=== PATIENT | male | born 1965 | race Caucasian/White ===

== ENCOUNTER 2016-04-30 11:14 | Emergency (ER) | payer MEDICARE, OTHER ==
[~2016-04-30] VITALS: Ht 180.3 cm; Wt 78.0 kg
[~2016-04-30 11:14] MED LIST: CHLO.12%30 SSP; CLIN1CAP5 PO; NAPR-576 PO
[2016-04-30 11:17] VITALS: BP 150/70; PULSE 87; RESP 16; TEMP 98.2; O2SAT 98
[2016-04-30] MEDS ORDERED: CEPH-460 PO (11:57)
[2016-04-30] MEDS ORDERED: BACT800T5 PO (11:57)
[2016-04-30] MEDS ORDERED: IBUP800T23 PO (11:57)
--- NOTE | 2016-04-30 11:58 | PD ---
HPI Chief Complaint: Skin Problem Time Seen by Provider: 11:42 Travel History International Travel<30 days: No Contact w/Intl Traveler<30days: No Traveled to known affect area: No History of Present Illness HPI 50-year-old male presents to the emergency Department with complaint of a lump to his back that has been there for the past few months. Over the past few days he has noticed that it is become more tender and red. He denies fever, chills, nausea, vomiting. He has not taken any medications or tried any treatments to alleviate his symptoms. Reports being up-to-date on his tetanus vaccination. No known allergies. No other modifying factors or associated signs and symptoms. PFSH Social History Alcohol Use: Yes Tobacco Use: Yes (1 PPD) Substance Use: Yes Allergies-Medications (Allergen,Severity, Reaction): Coded Allergies: No Known Allergies (Unverified , 04/30/16) Reported Meds & Prescriptions Reported Meds & Active Scripts Active Ibuprofen 800 Mg Tab 800 Mg PO Q6HR PRN Bactrim DS (Sulfamethoxazole-Trimethoprim) 800-160 Mg Tab 1 Tab PO BID 10 Days Keflex (Cephalexin) 500 Mg Cap 500 Mg PO Q6H 10 Days Review of Systems Except as stated in HPI: all other systems reviewed are Neg Physical Exam Narrative GENERAL: Well-nourished, well-developed male patient, in no acute distress; afebrile, nontoxic-appearing SKIN: There is an indurated area to the left upper back which measures about 1.5 cm in diameter. It is fluctuant but there is no pointing or drainage. There is a zone of inflammation around it but no lymphangitis. HEAD: Atraumatic. Normocephalic. EYES: Pupils equal and round. No scleral icterus. No injection or drainage. ENT: Mucosa pink and moist. Airway patent. NECK: Trachea midline. CARDIOVASCULAR: Regular rate. RESPIRATORY: No accessory muscle use. GASTROINTESTINAL: Flat. MUSCULOSKELETAL: No obvious deformities. No clubbing. No cyanosis. No edema. NEUROLOGICAL: Awake and alert. Oriented 3. No obvious cranial nerve deficits. Motor grossly within normal limits. Normal speech. PSYCHIATRIC: Appropriate mood and affect; insight and judgment normal. Data Data Last Documented VS Vital Signs Date Time Temp Pulse Resp B/P Pulse Ox O2 Delivery O2 Flow Rate FiO2 04/30/16 11:17 98.2 87 16 150/70 98 Orders Lidocaine 1% Inj (50 Ml) (Xylocaine 1% I (04/30/16 11:45) Wound Culture And Gram Stain (04/30/16 11:58) [facility] Medical Decision Making Medical Screen Exam Complete: Yes Emergency Medical Condition: Yes Medical Record Reviewed: Yes Differential Diagnosis Abscess, infected cyst, cellulitis Narrative Course 50-year-old male with a abscess to his left upper back that is fluctuant. Up-to -date on his tetanus vaccination. There was an area to the abscess looks like it has been previously been incised and drained but the patient says that he thinks he may have been shot with a pellet in the back, as the area has been there for a couple months, and has just recently become tender and erythematous. Patient is afebrile and nontoxic-appearing. He denies fever, chills, nausea, vomiting. See STEPAN Bradley procedure note for incision and drainage of the abscess. Wound culture pending. Keflex, Bactrim, ibuprofen prescribed for home. Patient verbalizes understanding and agreement with treatment plan. Patient is medically cleared and stable for discharge. Discussed reasons to return to the emergency department. Instructed patient to follow up with primary care provider. Patient agrees with treatment plan. The patients vital signs are stable and the patient is stable for outpatient follow- up and treatment. Patient discharged home, stable and in no acute distress. Diagnosis Primary Impression: Back abscess Referrals: Primary Care Physician Patient Instructions: Abscess (ED), Abscess Follow-up (ED), Abscess Incision and Drainage (ED), General Instructions Departure Forms: Tests/Procedures, Work Release Enter return to work date: May 01, 2016 Additional Instructions: Complete full course of antibiotics Warm compresses to the affected area Keep area clean and dry Ibuprofen or Tylenol as directed and as needed for pain and inflammation Follow-up with primary care provider Return to emergency department immediately with worsening of symptoms Med/Other Pt SpecificInfo: Prescription(s) given Scripts Ibuprofen 800 Mg [id number] Mg PO Q6HR PRN (PAIN) #30 TAB Ref 0 Prov:Kaylin No 04/30/16 Sulfamethoxazole-Trimethoprim (Bactrim DS)800-160 Mg Tab1 Tab PO BID 10 Days Ref 0 Prov:Kaylin No 04/30/16 Cephalexin (Keflex)500 Mg [id number] Mg PO Q6H 10 Days Ref 0 Prov:Kaylin No 04/30/16 Disposition: 01 DISCHARGE HOME Condition: Stable Kaylin No Apr 30, 2016 11:58
[2016-04-30] MEDS: LIDOCAINE HCL 1% 50 ML VIAL INFIL ONE (12:05)
--- NOTE | 2016-04-30 12:07 | PD ---
Physical Exam Date Seen by Provider: Apr 30, 2016 Time Seen by Provider: 12:05 Narrative I was asked by STEPAN Ewing, to incise and drain abscess to patient's left upper back. Please see her documentation for full history and physical. Data Data Last Documented VS Vital Signs Date Time Temp Pulse Resp B/P Pulse Ox O2 Delivery O2 Flow Rate FiO2 04/30/16 11:17 98.2 87 16 150/70 98 Orders Lidocaine 1% Inj (50 Ml) (Xylocaine 1% I (04/30/16 11:45) Wound Culture And Gram Stain (04/30/16 11:58) [facility] Medical Record Reviewed: Yes Supervised Visit with BRAYDON: No Procedures Procedure Narrative INCISION AND DRAINAGE OF ABSCESS: The area was prepped and was sterilely draped. A subcutaneous wheal of 1% Xylocaine with a total number 2 mL was used to anesthetize the area. The area was properly anesthetized. A number 11 scalpel was used to make a 1 -cm incision across the area of the abscess. Cultures were obtained. The abscess was drained an irrigated with normal saline. Sterile dressing applied. Diagnosis Primary Impression: Back abscess Referrals: Primary Care Physician Patient Instructions: General Instructions, Abscess Incision and Drainage (ED) , Abscess (ED), Abscess Follow-up (ED) Departure Forms: Work Release, Enter return to work date: Tests/Procedures Additional Instruction: Complete full course of antibiotics Warm compresses to the affected area Keep area clean and dry Ibuprofen or Tylenol as directed and as needed for pain and inflammation Follow-up with primary care provider Return to emergency department immediately with worsening of symptoms Scripts Ibuprofen 800 Mg [id number] Mg PO Q6HR PRN (PAIN) #30 TAB Ref 0 Prov:Kaylin No 04/30/16 Sulfamethoxazole-Trimethoprim (Bactrim DS)800-160 Mg Tab1 Tab PO BID 10 Days Ref 0 Prov:Kaylin No 04/30/16 Cephalexin (Keflex)500 Mg [id number] Mg PO Q6H 10 Days Ref 0 Prov:Kaylin No 04/30/16 Disposition: 01 DISCHARGE HOME Condition: Stable Renetta Lincoln STEPAN Apr 30, 2016 12:07
== END 2016-04-30 12:37 | disposition home or self-care (01) ==
LOC: NETRI 11:14
DX: L02.212 Cutaneous abscess of back [any part, except buttock and flank] (principal); F17.210 Nicotine dependence, cigarettes, uncomplicated; B95.61 Methicillin susceptible Staphylococcus aureus infection as the cause of diseases classified elsewhere
CPT/HCPCS: 10060; 86403; 87070; 87186